=== PATIENT | male | born 1975 | race Caucasian/White ===

== ENCOUNTER 2018-03-28 00:43 | Emergency (ER) | payer SELFPAY ==
[2018-03-28 01:47] VITALS: BP 126/75; PULSE 96; TEMP 98.7; BMI 30.1
--- NOTE | 2018-03-28 02:10 | PDOC ---
History of Present Illness <Salvatore Negron - Last Filed: 03/28/18 05:04> - General History Source: Patient Exam Limitations: No Limitations - History of Present Illness Initial Comments: 03/28/18 02:38 Best Contact: Pmhx: 2017/GIB Pshx: 2017/Endoscopy Allergies:NKDA 42-year-old male presents to the ER with his complaining of black tarry stool 4 days. Patient states he initially had periumbilical 3/10 nonradiating intermittent abdominal discomfort 4 days ago which subsided within the hour. That evening, he noticed his stool was dark in a normal. Patient states he's been having dark stool for 4 days without abdominal discomfort. He denies fever , chills, nausea/vomiting, headache, dizziness, lightheadedness, weakness, body aches, chest pain, shortness of breath, flank pains, urinary symptoms. Patient states he presents to the ER today with concern with his stool color. Approximately one year ago, patient states he was a heavy drinker which cause nausea/vomiting with hematemesis. Patient went to Hospital emergency department in [place] and was diagnosed with GI bleed. Patient had endoscopy within the week and is not sure what the results were. Patient was informed to follow- up in one year for another endoscopy. <Maddy Nice - Last Filed: 03/28/18 05:18> - General Chief Complaint: Constipation Stated Complaint: PROBLEM USING THE BATHROOM Time Seen by Provider: 03/28/18 01:45 Past History <Salvatore Negron - Last Filed: 03/28/18 05:04> - Suicide/Smoking/Psychosocial Hx Smoking History: Never smoked Have you smoked in the past 12 months: No Information on smoking cessation initiated: No Hx Alcohol Use: Yes Drug/Substance Use Hx: No <Maddy Nice - Last Filed: 03/28/18 05:18> - Past Medical History Allergies/Adverse Reactions: Allergies Allergy/AdvReac Type Severity Reaction Status Date / Time No Known Allergies Allergy Verified 03/28/18 01:47 Home Medications: Ambulatory Orders NK [No Known Home Medication] 03/28/18 Review of Systems - Review of Systems Able to Perform ROS?: Yes Comments:: 03/28/18 02:44 CONSTITUTIONAL: Absent: fever, chills, diaphoresis, generalized weakness, malaise, loss of appetite HEENT: Absent: rhinorrhea, nasal congestion, throat pain, throat swelling, difficulty swallowing, mouth swelling, ear pain, eye pain, visual Changes CARDIOVASCULAR: Absent: chest pain, loss of consciousness, palpitations, irregular heart rate, peripheral edema RESPIRATORY: Absent: cough, shortness of breath, dyspnea with exertion, orthopnea, wheezing, stridor, hemoptysis GASTROINTESTINAL: Absent: abdominal pain, abdominal distension, nausea, vomiting, diarrhea, constipation, melena, hematochezia GENITOURINARY: Absent: dysuria, frequency, urgency, hesitancy, hematuria, flank pain, genital pain MUSCULOSKELETAL: Absent: myalgia, arthralgia, joint swelling SKIN: Absent: rash, itching, pallor HEMATOLOGIC/IMMUNOLOGIC: Absent: easy bleeding, easy bruising, lymphadenopathy, frequent infections ENDOCRINE: Absent: unexplained weight gain, unexplained weight loss, heat intolerance, cold intolerance NEUROLOGIC: Absent: headache, focal weakness or paresthesias, dizziness, unsteady gait, seizure, mental status changes, bladder or bowel incontinence PSYCHIATRIC: Absent: anxiety, depression, suicidal or homicidal ideation, hallucinations. Is the patient limited Tajik proficient: No <Maddy Nice - Last Filed: 03/28/18 05:18> *Physical Exam - Vital Signs Last Vital Signs Temp Pulse Resp BP Pulse Ox 98.7 F 96 H 18 126/75 97 03/28/18 01:45 03/28/18 01:45 03/28/18 01:45 03/28/18 01:45 03/28/18 01:45 <Salvatore Negron - Last Filed: 03/28/18 05:04> - Vital Signs Last Vital Signs Temp Pulse Resp BP Pulse Ox 98.7 F 96 H 18 126/75 97 03/28/18 01:45 03/28/18 01:45 03/28/18 01:45 03/28/18 01:45 03/28/18 01:45 - Physical Exam Comments: 03/28/18 02:44 GENERAL: Well developed, well nourished. Awake and alert. No acute distress. HEENT: Normocephalic, atraumatic. PERRLA, EOMI. No conjunctival pallor. Sclera are non- icteric. Moist mucous membranes. Oropharynx is clear. NECK: Supple. Full ROM. No JVD. Carotid pulses 2+ and symmetric, without bruits. No thyromegaly. No lymphadenopathy. CARDIOVASCULAR: Regular rate and rhythm. No murmurs, rubs, or gallops. Distal pulses are 2+ and symmetric. PULMONARY: No evidence of respiratory distress. Lungs clear to auscultation bilaterally. No wheezing, rales or rhonchi. ABDOMINAL: Soft. Non-tender. Non-distended. No rebound or guarding. No organomegaly. Normoactive bowel sounds. MUSCULOSKELETAL Normal range of motion at all joints. No bony deformities or tenderness. No CVA tenderness. EXTREMITIES: No cyanosis. No clubbing. No edema. No calf tenderness. SKIN: Warm and dry. Normal capillary refill. No rashes. No jaundice. NEUROLOGICAL: Alert, awake, appropriate. Cranial nerves 2-12 intact. No deficits to light touch and temperature in face, upper extremities and lower extremities. No motor deficits in the in face, upper extremities and lower extremities. Normoreflexic in the upper and lower extremities. Normal speech. Toes are down- going bilaterally. Gait is normal without ataxia. PSYCHIATRIC: Cooperative. Good eye contact. Appropriate mood and affect. <Maddy Nice - Last Filed: 03/28/18 05:18> Heart Score/ECG Review - ECG Intrepretation Comment:: 03/28/18 05:04 Conducted @3:21:04 Normal Sinus rhythm Normal ECG <Salvatore Negron - Last Filed: 03/28/18 05:04> ED Treatment Course - LABORATORY CBC & Chemistry Diagram: 03/28/18 02:10 03/28/18 02:10 - ADDITIONAL ORDERS Additional order review: Laboratory Results 03/28/18 03/28/18 02:11 02:10 Sodium 140 Potassium 3.8 Chloride 103 Carbon Dioxide 29 Anion Gap 8 BUN 32 H Creatinine 0.7 Creat Clearance w eGFR > 60 Random Glucose 96 Calcium 8.9 Total Bilirubin 0.5 AST 41 H ALT 51 Alkaline Phosphatase 79 Total Protein 7.3 Albumin 3.6 Stool Occult Blood Positive 03/28/18 02:10 RBC 3.71 L MCV 89.7 MCHC 35.6 RDW 12.7 MPV 8.0 Neutrophils % 51.7 Lymphocytes % 38.1 Monocytes % 6.6 Eosinophils % 2.8 Basophils % 0.8 - Medications Given in the ED: ED Medications Discontinued Medications Generic Name Dose Route Start Last Admin Trade Name Amadeo PRN Reason Stop Dose Admin Pantoprazole Sodium 40 mg 03/28/18 02:28 03/28/18 02:52 Protonix Iv IVPUSH 03/28/18 02:29 40 mg ONCE ONE Administration Pantoprazole Sodium 40 mg 03/28/18 02:52 03/28/18 02:52 Protonix Iv IVPUSH 03/28/18 02:53 40 mg NOW ONE Administration <Salvatore Negron - Last Filed: 03/28/18 05:04> - LABORATORY CBC & Chemistry Diagram: 03/28/18 02:10 03/28/18 02:10 <Maddy Nice - Last Filed: 03/28/18 05:18> *DC/Admit/Observation/Transfer <Salvatore Negron - Last Filed: 03/28/18 05:04> - Discharge Dispostion Admit: No <Maddy Nice - Last Filed: 03/28/18 05:18> Diagnosis at time of Disposition: Bloody stool - Discharge Dispostion Disposition: AGAINST MEDICAL ADVICE Condition at time of disposition: Guarded - Referrals Referrals: Gen Flores MD [Staff Physician] - - Patient Instructions Additional Instructions: Be sure to follow-up with the baggage handling supervisor/Dr. Flores You are signing out AGAINST MEDICAL ADVICE. You were advised that you should stay in the emergency department to have your blood work redrawn since you have blood in your stool. Return back to the emergency department for severe/persistent or worsening symptoms Progress Note - Progress Note Progress Note: 0501hrs: Patient refuses to stay in the emergency department. Patient insists on signing out AMA <Maddy Nice - Last Filed: 03/28/18 05:18>
[2018-03-28 02:20] LABS: BASO % 0.8 % (0-2.0); EOS % 2.8 % (0-4.5); HEMATOCRIT 33.3 % (35.4-49); HEMOGLOBIN 11.9 GM/dL (11.7-16.9); LYMPH % 38.1 % (8-40); MCHC 35.6 g/dl (32.0-35.9); MEAN CELL VOLUME 89.7 fl (80-96); MONO % 6.6 % (3.8-10.2); NEUT % 51.7 % (42.8-82.8); PLATELET COUNT 259 K/MM3 (134-434); RBC 3.71 M/mm3 (4.00-5.60); RDW 12.7 % (11.9-15.9); WHITE BLOOD COUNT 9.5 K/mm3 (4.0-10.0)
[2018-03-28] MEDS ORDERED: PANTOPRAZOLE SODIUM 40 MG VIAL IVPUSH ONE ×2 (02:28→02:52)
[2018-03-28] MEDS ORDERED: PANTOPRAZOLE SODIUM 40 MG VIAL ONE (02:43)
[2018-03-28 02:47] LABS: ALBUMIN 3.6 g/dl (3.4-5.0); ALK PHOS 79 U/L (45-117); ANION GAP 8 (8-16); BILIRUBIN,TOTAL 0.5 mg/dL (0.2-1.0); BLOOD UREA NITROGEN 32 mg/dL (7-18); CALCIUM 8.9 mg/dL (8.5-10.1); CHLORIDE 103 mmol/L (98-107); CO2 29 mmol/L (21-32); CREATININE 0.7 mg/dL (0.7-1.3); GLUCOSE,RANDOM 96 mg/dL (74-106); POTASSIUM 3.8 mmol/L (3.5-5.1); SGOT/AST 41 U/L (15-37); SGPT/ALT 51 U/L (12-78); SODIUM 140 mmol/L (136-145); TOT PROT 7.3 g/dl (6.4-8.2)
--- NOTE | 2018-03-28 10:43 | EKG ---
Test Reason : Blood Pressure : / mmHG Vent. Rate : 073 BPM Atrial Rate : 073 BPM P-R Int : 156 ms QRS Dur : 074 ms QT Int : 356 ms P-R-T Axes : 058 040 035 degrees QTc Int : 392 ms NORMAL SINUS RHYTHM NORMAL ECG NO PREVIOUS ECGS AVAILABLE Confirmed by SUZY VILLARREAL MD ([id number]) on 03/28/2018 10:42:59 AM Referred By: Confirmed By:SUZY VILLARREAL MD
== END 2018-03-28 06:28 | disposition left against medical advice (07) ==
LOC: JER 00:43 → JERBED 03:13 → UNDOADMOB 03:13 → JER 06:28
PROC: 3E033GC Introduction of Other Therapeutic Substance into Peripheral Vein, Percutaneous Approach (ICD-10-PCS; principal; 2018-03-28)
DX: K92.1 Melena (principal)
CPT/HCPCS: 36415; 80053; 82272; 85025; 93005; 93010; 99281-25; 99283-25

== ENCOUNTER 2020-07-15 16:09 | Emergency (ER) | payer SELFPAY ==
[2020-07-15 16:25] VITALS: BP 151/100; PULSE 77; TEMP 98; BMI 28.3
--- NOTE | 2020-07-15 17:27 | PDOC ---
History of Present Illness - General Chief Complaint: Lightheaded Stated Complaint: DEPRESSION Time Seen by Provider: 07/15/20 17:09 History Source: Patient - History of Present Illness Timing/Duration: other (today) Past History - Medical History Allergies/Adverse Reactions: Allergies Allergy/AdvReac Type Severity Reaction Status Date / Time No Known Allergies Allergy Verified 07/15/20 16:25 Home Medications: Ambulatory Orders NK [No Known Home Medication] 03/28/18 COPD: No - Psycho-Social/Smoking History Smoking History: Never smoked Have you smoked in the past 12 months: No - Substance Abuse Hx (Audit-C & DAST Scrn) How often the patient has a drink containing alcohol: 2-4 times / month Score: In Men: 4 or > Positive; In Women: 3 or > Positive: 2 Screen Result (Pos requires Nsg. Audit-10AR): Negative Review of Systems - Review of Systems HEENTM: No: Eye Pain, Blurred Vision, Tearing, Ear Pain Respiratory: No: Shortness of Breath Cardiac (ROS): No: Chest Pain Neurological: No: Headache, Numbness, Weakness, Dizziness *Physical Exam - Vital Signs Last Vital Signs Temp Pulse Resp BP Pulse Ox 98 F 77 18 151/100 97 07/15/20 16:23 07/15/20 16:23 07/15/20 16:23 07/15/20 16:23 07/15/20 16:23 - Physical Exam General Appearance: Yes: Appropriately Dressed. No: Apparent Distress HEENT: positive: Normal Voice, Other (subconj hemorrhage to lateral canthus of L eye) Neck: positive: Supple Respiratory/Chest: positive: Lungs Clear, Normal Breath Sounds. negative: Respiratory Distress Cardiovascular: positive: Regular Rate, S1, S2 Integumentary: positive: Dry, Warm Neurologic: positive: Fully Oriented, Alert, Normal Mood/Affect Medical Decision Making - Medical Decision Making 07/15/20 17:25 44 yo M, no sig hx, here because BP was high in the pharmacy this am. States he went to check BP because he awoke with his L eye red. No eye pain. No injury. Denies any other sxs at this time see exam Elevated BP Asx from BP standpoint Does not carry dx of HTN Dc w/ referral to [facility] as no insurance Subj conjunc No trauma Dc w/ reassurance Discharge - Discharge Information Problems reviewed: Yes Clinical Impression/Diagnosis: Elevated blood pressure reading, Conjunctival hemorrhage of left eye Condition: Good Disposition: HOME - Follow up/Referral - Patient Discharge Instructions Patient Printed Discharge Instructions: DI for High Blood Pressure, DI for Subconjunctival Hemorrhage Additional Instructions: Ureña presin arterial est elevada, jos deber realizar un seguimiento con un mdico de atencin primaria para controlar ureña presin arterial yusuf. Mientras tanto, danica ejercicio y coma terrell Llame a la clnica a continuacin. [place] a pacientes que no tienen seguro y tienen mdicos de atencin primaria. Clnica: Atencin mdica al [phone] Ureña maile lemus proviene de capilares sangrantes y el cuerpo reabsorbe la stew por s solo en 2 semanas. No se necesitan medicamentos Print Language: FAROESE - Post Discharge Activity
== END 2020-07-15 17:41 | disposition home or self-care (01) ==
LOC: JER 16:09
DX: H11.32 Conjunctival hemorrhage, left eye (principal); R03.0 Elevated blood-pressure reading, without diagnosis of hypertension
CPT/HCPCS: 99283-25